=== PATIENT | female | born 1985 | race African-American/Black ===

== ENCOUNTER 2017-02-12 05:08 | Emergency (ER) | payer SELFPAY ==
[2017-02-12 05:09] VITALS: BP 135/87; PULSE 96; RESP 15; TEMP 99.2; O2SAT 98
[2017-02-12] MEDS ORDERED: MACR100C2 PO (05:50)
[2017-02-12] MEDS ORDERED: TRICTAB PO (06:24)
--- NOTE | 2017-02-12 06:26 | PD ---
HPI Chief Complaint: GI Complaint Time Seen by Provider: 05:47 Travel History International Travel<30 days: No Contact w/Intl Traveler<30days: No Traveled to known affect area: No History of Present Illness HPI 31-year-old female arrives with occasional nausea, vague discomfort with urination as well as urinary frequency. She reports that about 7 weeks ago she was started on Macrobid for UTI however she stopped taking it early in the course due to nausea. Last menstruation was about 7 weeks ago. She's had no vaginal bleeding or vaginal discharge. She discovered today here that she is with the point of care test. No fever or back pain. PFSH Past Medical History Medical History: Denies Significant Hx Diminished Hearing: No ?: Unknown Past Surgical History Surgical History: No Previous Surgery Social History Alcohol Use: No Tobacco Use: No Substance Use: No Allergies-Medications (Allergen,Severity, Reaction): Coded Allergies: No Known Allergies (Unverified , 02/12/17) Reported Meds & Prescriptions Reported Meds & Active Scripts Active ( Vit-Ferrous Fumarate) 1 Tab Tab 1 Tab PO DAILY Reported Macrobid (Nitrofurantoin Monoh/Nitrofur Macro) 100 Mg Cap 100 Mg PO BID Review of Systems Except as stated in HPI: all other systems reviewed are Neg Physical Exam Narrative GENERAL: 31-year-old female well-nourished well-developed no acute distress SKIN: Warm and dry. HEAD: Atraumatic. Normocephalic. EYES: Pupils equal and round. No scleral icterus. No injection or drainage. ENT: No nasal bleeding or discharge. Mucous membranes pink and moist. NECK: Trachea midline. No JVD. CARDIOVASCULAR: Regular rate and rhythm. RESPIRATORY: No accessory muscle use. Clear to auscultation. Breath sounds equal bilaterally. GASTROINTESTINAL: Abdomen soft, non-tender, nondistended. Hepatic and splenic margins not palpable. No flank tenderness. MUSCULOSKELETAL: Extremities without clubbing, cyanosis, or edema. No obvious deformities. NEUROLOGICAL: Awake and alert. No obvious cranial nerve deficits. Motor grossly within normal limits. Five out of 5 muscle strength in the arms and legs. Normal speech. PSYCHIATRIC: Appropriate mood and affect; insight and judgment normal. Data Data Last Documented VS Vital Signs Date Time Temp Pulse Resp B/P Pulse Ox O2 Delivery O2 Flow Rate FiO2 02/12/17 05:09 99.2 96 15 135/87 98 Room Air Vital signs reviewed Orders Urinalysis - C+S If Indicated (02/12/17 05:53) Ed Urine Pregnancytest Poc (02/12/17 05:53) Urine Culture (02/12/17 06:05) Labs Laboratory Tests Test 02/12/17 06:05 Urine Color YELLOW Urine Turbidity HAZY Urine pH 6.0 Urine Specific Bradley 1.035 Urine Protein 30 mg/dL Urine Glucose (UA) NEG mg/dL Urine Ketones NEG mg/dL Urine Occult Blood NEG Urine Nitrite NEG Urine Bilirubin NEG Urine Urobilinogen LESS THAN 2.0 MG/DL Urine Leukocyte Esterase NEG Urine RBC 4 /hpf Urine WBC 12 /hpf Urine Squamous Epithelial 10 /hpf Cells Urine Bacteria MOD /hpf Urine Hyaline Casts 7 /lpf Urine Mucus MANY /lpf Microscopic Urinalysis Comment CULTURE INDICATED MDM Medical Decision Making Medical Screen Exam Complete: Yes Emergency Medical Condition: Yes Medical Record Reviewed: Yes Differential Diagnosis UTI, intrauterine , gynecologic-related cramping Narrative Course Point of care is positive UA: UTI Keflex script. vitamins. OB f/u. Diagnosis Primary Impression: Qualified Code: Z3A.01 - Less than 8 weeks gestation of Additional Impression: Cystitis Referrals: Aranza Mayberry MD 2 days Patient Instructions: Abdominal Pain in (ED), General Instructions Additional Instructions: Call Dr. Mayberry of obstetrics to establish ongoing follow-up. Please fill Keflex prescription and start taking it this morning. Med/Other Pt SpecificInfo: Prescription(s) given Scripts Cephalexin (Keflex)500 Mg Hgi237 Mg PO Q12H 5 Days Ref 0 Prov:Ede Cheng MD 02/12/17 Vit-Ferrous Fumarate ()1 Tab Tab1 Tab PO DAILY #30 TAB Ref 3 Prov:Ede Cheng MD 02/12/17 Disposition: 01 DISCHARGE HOME Condition: Stable Ede Cheng MD Feb 12, 2017 06:26
[2017-02-12 06:47] LABS: BACTERIA, URINE MOD /hpf; BLOOD, URINE NEG (NEG); COMMENT (UR) CULTURE INDICATED; CULTURE IF INDICATED CULTURE INDICATED; GLUCOSE,URINE NEG (NEG); HYALINE CAST, URINE 7 /lpf (RARE); KETONE, URINE NEG (NEG); MUCUS URINE MANY /lpf (OCC); NITRITE,URINE NEG (NEG); SQUAMOUS EPITHELIAL CELL URINE 10 /hpf (0-5); URINE COLOR YELLOW (YELLW/STRAW)
[2017-02-12] MEDS ORDERED: CEPH-460 PO (06:59)
== END 2017-02-12 07:12 | disposition home or self-care (01) ==
LOC: NEPE 05:08
DX: O23.11 Infections of bladder in pregnancy, first trimester (principal); Z3A.01 Less than 8 weeks gestation of pregnancy
CPT/HCPCS: 81001; 84703; 87086; 99283

== ENCOUNTER 2017-09-07 14:43 | Inpatient (IN) | payer MEDICAID, OTHER ==
[~2017-09-07] VITALS: Ht 172.7 cm; Wt 92.0 kg
[2017-09-07] VITALS (30 sets, daily range): BP systolic 141–169; BP diastolic 85–109; PULSE 16–106; RESP 16–20; TEMP 97.4–98.4; O2SAT 100
[~2017-09-07 14:43] MED LIST: CEPH-460 PO; MACR100C2 PO; TRICTAB PO
[2017-09-07] MEDS: LACTATED RINGER'S 1000 ML INJ 1,000 ML IV SCH ×2 (15:59)
[2017-09-07] MEDS ORDERED: LACTATED RINGER'S 1000 ML INJ 1,000 ML IV PRN (15:59)
--- NOTE | 2017-09-07 15:59 | PD ---
HPI Chief Complaint High blood pressure Date Seen: Sep 07, 2017 Time Seen: 15:55 Travel History International Travel<30 Days: No Contact w/Intl Traveler<30Days: No Known Affected Area: No History of Present Illness HPI 32-year-old who is at 37 weeks 4 days went into [facility] for her midwifery today with a blood pressure that was 178/126. Patient complains of a headache since this morning with some swelling in the hands and feet for several weeks. Patient's had good movement and no other complaints at this time Weeks Gestation: 37 Para: 0 : 1 History Past Medical History Medical History: Denies Significant Hx Past Surgical History Surgical History: No Previous Surgery Family History Family History: Negative Social History Alcohol Use: No Tobacco Use: No Substance Abuse: No Allergies-Medications (Allergen,Severity, Reaction): Coded Allergies: No Known Allergies (Unverified , 02/12/17) Home Meds Active Scripts Cephalexin (Keflex) 500 Mg Cap, 500 MG PO Q12H for Infection for 5 Days, CAP 0 Refills Prov:Ede Cheng MD 02/12/17 Vit-Ferrous Fumarate () 1 Tab Tab, 1 TAB PO DAILY for Nutritional Supplement, #30 TAB 3 Refills Prov:Ede Cheng MD 02/12/17 Reported Medications Nitrofurantoin Monohydrate Macrocrystals (Macrobid) 100 Mg Cap, 100 MG PO BID for Infection, CAP 0 Refills 02/12/17 Physical Exam Narrative GENERAL: Well-nourished, well-developed patient. SKIN: Warm and dry. HEAD: Normocephalic and atraumatic. EYES: No scleral icterus. No injection or drainage. ENT: No nasal drainage noted. Mucous membranes pink. Airway patent. NECK: Supple, trachea midline. No JVD. CARDIOVASCULAR: Regular rate and rhythm without murmurs, gallops, or rubs. RESPIRATORY: Breath sounds equal bilaterally. No accessory muscle use. ABDOMEN/GI: Abdomen soft, non-tender, bowel sounds present, no rebound, no guarding Gravid to [-38] weeks size Fundal Height: [-] GENITOURINARY: External Genitalia: intact and normal in appearance BUS glands: [Normal-] Cervix: [-] 1 Dilatation: [-] Effacement: [-] 70 Station: [-] -2 Presentation: [-] Vertex Membranes: [intact or ruptured] intact Uterine Contractions: [-] Absent FHT's: Category: [-] 1 Baseline: [-] 140 Reactive: [-] Moderate Variability: [-] Moderate Decels: [-] Absent EXTREMITIES: No cyanosis or edema. BACK: Nontender without obvious deformity. No CVA tenderness. NEUROLOGICAL: Awake and alert. Motor and sensory grossly within normal limits. Five out of 5 muscle strength in all muscle groups. Normal speech. Data Data Vital Signs Reviewed: Yes (blood pressures are elevated 162/102, 158/98) Group B Strep: Negative [facility] Medical Record Reviewed: Yes Plan 32-year-old at 37 weeks 4 days with gestational hypertension. Patient will need to be placed on magnesium sulfate with antihypertensive therapy with labetalol IV as necessary. Plan to induce using Cytotec for cervical ripening followed by Pitocin. Group B strep negative Diagnosis Diagnosis: Primary Impression: 37 weeks gestation of Additional Impression: Gestational hypertension Savi Olvera MD Sep 07, 2017 15:59
[2017-09-07] MEDS ORDERED: CITRIC ACID-SODIUM CITRATE LIQ 30 ML UDC PO SCH (16:00)
[2017-09-07] MEDS ORDERED: MISOPROSTOL 100 MCG TAB VAGINAL PRN (16:00)
[2017-09-07] MEDS ORDERED: OXYTOCIN 30 UNITS-500ML PREMIX 500 ML IV ONE (16:00)
[2017-09-07] MEDS ORDERED: ONDANSETRON HCL 4 MG/2 ML VIAL IV PUSH PRN (16:00)
[2017-09-07] MEDS ORDERED: SODIUM CHLORID 0.9% 500 ML INJ 500 ML IV PRN (16:00)
[2017-09-07] MEDS ORDERED: MINERAL OIL 10 ML VIAL TOPICAL PRN (16:00)
[2017-09-07] MEDS ORDERED: MAGNESIUM SULFATE 4 GM PREMIX 100 ML IV ONE (16:00)
[2017-09-07] MEDS ORDERED: LIDOCAINE HCL 1% 50 ML VIAL INFIL PRN (16:00)
[2017-09-07] MEDS ORDERED: CALCIUM GLUCONATE 10% 1 GM/10 ML VIAL IV PUSH PRN (16:00)
[2017-09-07] MEDS ORDERED: LIDOCAINE HCL 1% 50 ML VIAL I-DERMAL PRN (16:00)
[2017-09-07] MEDS ORDERED: SODIUM CHLORIDE 0.9% FLUSH 10 ML FLUSH IV FLUSH PRN ×2 (16:00)
[2017-09-07] MEDS ORDERED: LABETALOL HCL 100 MG/20 ML VIAL IV PUSH PRN ×2 (16:00→16:15)
[2017-09-07] MEDS ORDERED: SODIUM CHLOR 0.9% 1000 ML INJ 1,000 ML IV PRN (16:19)
[2017-09-07 17:04] LABS: AUTOMATED NEUTROPHIL # 6.1 TH/MM3 (1.8-7.7); BASOPHIL % 0.3 % (0.0-2.0); EOSINOPHIL # 0.1 TH/MM3 (0-0.4); EOSINOPHIL % 0.9 % (0.0-4.0); HEMATOCRIT 38.1 % (35.0-46.0); HEMOGLOBIN 12.8 GM/DL (11.6-15.3); LYMPHOCYTE # 2.4 TH/MM3 (1.0-4.8); MEAN CELL VOLUME 88.8 FL (80.0-100.0); MEAN CORPUSCULAR HEMOGLOBIN 29.8 PG (27.0-34.0); MEAN CORPUSCULAR HGB CONC 33.5 % (32.0-36.0); MEAN PLATELET VOLUME 9.3 FL (7.0-11.0); MONO % 9.2 % (0.0-8.0); MONOCYTE # 0.9 TH/MM3 (0-0.9); NEUT % 64.6 % (16.0-70.0); PLATELET COUNT 211 TH/MM3 (150-450); RED BLOOD COUNT 4.29 MIL/MM3 (4.00-5.30); RED CELL DISTRIBUTION WIDTH 14.3 % (11.6-17.2); WHITE BLOOD COUNT 9.5 TH/MM3 (4.0-11.0)
[2017-09-07 17:19] LABS: BACTERIA, URINE MOD /hpf; BILIRUBIN, URINE NEG (NEG); BLOOD, URINE NEG (NEG); GLUCOSE,URINE NEG (NEG); KETONE, URINE NEG (NEG); NITRITE,URINE NEG (NEG); SQUAMOUS EPITHELIAL CELL URINE 6 /hpf (0-5); URINE COLOR LIGHT-YELLOW (YELLW/STRAW); URINE LEUKOCYTE ESTERASE SMALL (NEG)
[2017-09-07 17:27] LABS: ALBUMIN 2.8 GM/DL (3.4-5.0); ALT (GPT) 17 U/L (10-53); AST (GOT) 17 U/L (15-37); BICARBONATE 23.6 MEQ/L (21.0-32.0); BLOOD UREA NITROGEN 5 MG/DL (7-18); CALCIUM 8.9 MG/DL (8.5-10.1); CHLORIDE 105 MEQ/L (98-107); CREATININE 0.64 MG/DL (0.50-1.00); GLOMERULAR FILTRATION RATE 131 ML/MIN (>89); GLUCOSE,RANDOM 75 MG/DL (74-106); SODIUM (NA) 138 MEQ/L (136-145)
[2017-09-07 17:30] LABS: ALKALINE PHOSPHATASE 166 U/L (45-117); TOTAL BILIRUBIN ADULT 0.2 MG/DL (0.2-1.0); TOTAL PROTEIN 7.4 GM/DL (6.4-8.2)
[2017-09-07] MEDS: MAGNESIUM SULFATE 40 GM PREMIX 1,000 ML IV SCH (19:30)
[2017-09-07] MEDS: SODIUM CHLORIDE 0.9% FLUSH 10 ML FLUSH IV FLUSH SCH ×2 (21:00)
--- NOTE | 2017-09-07 21:24 | PD.LABORPN ---
Subjective Subjective Laying in bed comfortably, no complaints at this time. Objective Objective Pelvic Exam: Cervix: - Dilatation: 1 Effacement: 70 Station: -2 Presentation: midposition Membranes: intact Uterine Contractions: rare FHT's: Category: 1 Baseline: 125 Reactive: yes Variability: moderate Decels: none Weeks Gestation: 37 Assessment/Plan Assessment and Plan 32 year old at 34 and 4 admitted with hypertension, on magnesium and being induced. Category 1 FHT GBS negative -Cervical ripening with Cytotec -Pitocin to follow -Continuous FHT -Expectant management -Continue activity as tolerated Boni Menendez MD R1 Sep 07, 2017 21:24
[2017-09-08] VITALS (125 sets, daily range): BP systolic 123–164; BP diastolic 18–127; PULSE 83–185; RESP 16–20; TEMP 97.6–98.4; O2SAT 98–100
[2017-09-08] MEDS ORDERED: MISOPROSTOL 25 MCG TAB VAGINAL PRN (01:45)
[2017-09-08] MEDS: LACTATED RINGER'S 1000 ML INJ 1,000 ML IV SCH ×3 (02:45→18:39)
[2017-09-08] MEDS ORDERED: LIDOCAINE 2% JELLY 5 ML TUBE TOPICAL ONE (03:00)
[2017-09-08] MEDS: SODIUM CHLORIDE 0.9% FLUSH 10 ML FLUSH IV FLUSH SCH ×3 (08:18→21:00)
--- NOTE | 2017-09-08 08:33 | PD.LABORPN ---
Subjective Subjective Patient continues to have contractions that have recently become more painful. Last cytotec at 0200 this am. Three doses of labetalol throughout the night due to elevated blood pressures. 37-38 week presently on magnesium sulfate due to severe preeclampsia admitted for induction. Objective Vital Signs Vital Signs Date Time Temp Pulse Resp B/P (MAP) Pulse Ox O2 Delivery O2 Flow Rate FiO2 09/08/17 08:11 16 09/08/17 08:01 96 143/99 (114) 09/08/17 08:00 94 09/08/17 07:45 16 09/08/17 07:15 16 09/08/17 07:05 93 100 09/08/17 07:00 94 09/08/17 07:00 91 146/100 (115) 100 09/08/17 06:07 16 09/08/17 06:05 87 09/08/17 06:00 88 09/08/17 06:00 94 16 139/80 (99) 09/08/17 05:55 95 09/08/17 05:50 93 09/08/17 05:50 92 142/88 (106) 09/08/17 05:45 98 09/08/17 05:45 18 09/08/17 05:41 94 150/94 (112) 09/08/17 05:40 95 09/08/17 05:35 92 09/08/17 05:30 92 09/08/17 05:15 18 09/08/17 05:10 99 09/08/17 05:05 96 09/08/17 05:00 93 09/08/17 05:00 96 164/98 (120) 09/08/17 04:10 90 09/08/17 04:05 89 09/08/17 04:00 92 150/94 (112) 09/08/17 04:00 91 09/08/17 03:55 96 100 09/08/17 03:50 105 100 09/08/17 03:45 113 100 09/08/17 03:41 16 09/08/17 03:40 87 150/102 (118) 09/08/17 03:40 98 09/08/17 03:40 93 09/08/17 03:35 98 09/08/17 03:35 86 09/08/17 03:30 97 18 09/08/17 03:30 100 09/08/17 03:25 100 09/08/17 03:25 91 09/08/17 03:24 91 159/100 (119) 09/08/17 03:20 100 09/08/17 03:20 93 09/08/17 03:15 100 09/08/17 03:15 94 18 09/08/17 03:10 98 09/08/17 03:10 100 09/08/17 03:05 100 09/08/17 03:05 95 09/08/17 03:00 98 09/08/17 03:00 93 164/100 (121) 09/08/17 03:00 100 09/08/17 02:55 99 100 09/08/17 02:50 90 100 09/08/17 02:45 91 100 09/08/17 02:40 89 100 09/08/17 02:35 88 100 09/08/17 02:30 87 100 09/08/17 02:25 88 100 09/08/17 02:20 94 100 09/08/17 02:15 95 100 09/08/17 02:15 98.4 16 09/08/17 02:10 102 09/08/17 02:05 93 09/08/17 02:00 94 09/08/17 02:00 94 162/100 (120) 09/08/17 01:58 98.4 09/08/17 01:00 90 159/100 (119) 100 09/08/17 01:00 92 Objective Pelvic Exam: Cervix: [-]anterior Dilatation: [-] 1 Effacement: [-]90 Station: [-] -2 Presentation: [-]vtx Membranes: [intact or ruptured] AROM clear Uterine Contractions: [-]irregular/external FHT's: Category: [-]1 Baseline: [-] 140 Reactive: [-] mod Variability: [-] mod Decels: [-] occasional variable to 90 x 20 sec Weeks Gestation: 37 Artificial ROM date: Sep 08, 2017 Artifical ROM time: 08:31 Assessment/Plan Assessment and Plan Continue magnesium sulfate with labetalol prn elevated blood pressure Start pitocin augmentation Savi Olvera MD Sep 08, 2017 08:33
[2017-09-08] MEDS ORDERED: OXYTOCIN 30 UNITS-500ML PREMIX 500 ML IV PRN (08:45)
[2017-09-08] MEDS ORDERED: hydrALAZINE HCL 20 MG/ML VIAL IV PUSH ONE (10:30)
--- NOTE | 2017-09-08 11:09 | PD.LABORPN ---
Subjective Subjective Patient laying in bed tolerating contractions. IUPC placed. Objective Vital Signs Vital Signs Date Time Temp Pulse Resp B/P (MAP) Pulse Ox O2 Delivery O2 Flow Rate FiO2 09/08/17 10:52 97.7 09/08/17 10:40 102 09/08/17 10:35 102 09/08/17 10:30 100 161/106 (124) 09/08/17 10:30 100 09/08/17 10:05 103 09/08/17 10:00 100 09/08/17 10:00 100 160/104 (122) 09/08/17 09:50 98 09/08/17 09:49 101 162/101 (121) 09/08/17 09:45 97 09/08/17 09:10 97 09/08/17 09:05 98 09/08/17 09:00 100 158/106 (123) 09/08/17 09:00 97 09/08/17 08:11 16 09/08/17 08:01 96 143/99 (114) 09/08/17 08:00 94 09/08/17 07:45 16 09/08/17 07:15 16 09/08/17 07:05 93 100 09/08/17 07:00 94 09/08/17 07:00 91 146/100 (115) 100 09/08/17 06:07 16 09/08/17 06:05 87 09/08/17 06:00 88 09/08/17 06:00 94 16 139/80 (99) 09/08/17 05:55 95 09/08/17 05:50 93 09/08/17 05:50 92 142/88 (106) 09/08/17 05:45 98 09/08/17 05:45 18 09/08/17 05:41 94 150/94 (112) 09/08/17 05:40 95 09/08/17 05:35 92 09/08/17 05:30 92 09/08/17 05:15 18 09/08/17 05:10 99 09/08/17 05:05 96 09/08/17 05:00 93 09/08/17 05:00 96 164/98 (120) 09/08/17 04:10 90 09/08/17 04:05 89 09/08/17 04:00 92 150/94 (112) 09/08/17 04:00 91 09/08/17 03:55 96 100 09/08/17 03:50 105 100 09/08/17 03:45 113 100 09/08/17 03:41 16 09/08/17 03:40 87 150/102 (118) 09/08/17 03:40 98 09/08/17 03:40 93 09/08/17 03:35 98 09/08/17 03:35 86 09/08/17 03:30 97 18 09/08/17 03:30 100 09/08/17 03:25 100 09/08/17 03:25 91 09/08/17 03:24 91 159/100 (119) 09/08/17 03:20 100 09/08/17 03:20 93 09/08/17 03:15 100 09/08/17 03:15 94 18 09/08/17 03:10 98 09/08/17 03:10 100 09/08/17 03:05 100 09/08/17 03:05 95 Objective Pelvic Exam: Cervix: midline Dilatation: 4 Effacement: 100 Station: 0 Presentation: vertex Membranes: ruptured Uterine Contractions: regularly FHT's: Category: 1 Baseline: 130s Reactive: yes Variability: moderate Decels: none Weeks Gestation: 37 Pt started active labor?: No Medical induction of labor?: Yes Artificial rupture of membrane: Yes Artificial ROM date: Sep 08, 2017 Artifical ROM time: 08:31 Assessment/Plan Assessment and Plan 32yo at 37/5 weeks gestation admitted for induction of labor due to pre- eclampsia. FHT shows category 1 tracing -Currently on IV hydralazine for BP -IUPC placed -Continue to monitor for any distress Tanja Lauren MD R1 Sep 08, 2017 11:09
[2017-09-08] MEDS ORDERED: fentaNYL 2MCG-BUPIV 0.125% INJ 100 ML ONE ×2 (11:20→11:29)
[2017-09-08] MEDS ORDERED: ePHEDrine/NS 25 MG/5 ML SYRINGE ONE ×2 (11:20→11:29)
[2017-09-08] MEDS ORDERED: fentaNYL 2MCG-BUPIV 0.125% 100 ML EPIDURAL SCH (13:00)
[2017-09-08] MEDS ORDERED: NO SYSTEM NARCOTICS PRN (13:00)
[2017-09-08] MEDS ORDERED: DO NOT ADMINISTER ANTICOAGULANTS PRN (13:00)
[2017-09-08] MEDS ORDERED: ePHEDrine/NS 25 MG/5 ML SYRINGE IV PUSH PRN (13:00)
[2017-09-08] MEDS ORDERED: ONDANSETRON ODT 4 MG TAB PO PRN (13:45)
[2017-09-08] MEDS ORDERED: BENZOCAINE 20% TOPICAL SPRAY 60 ML CAN TOPICAL PRN (13:45)
[2017-09-08] MEDS ORDERED: OXYTOCIN 30 UNITS-500ML PREMIX 500 ML IV SCH (13:45)
[2017-09-08] MEDS ORDERED: oxyCODONE/ACETAMINOPHEN 5 MG/325 MG TAB PO PRN (13:45)
[2017-09-08] MEDS ORDERED: WITCH HAZEL 50%/GLYCERIN 12.5% 40 PAD JAR TOPICAL PRN (13:45)
[2017-09-08] MEDS ORDERED: ALUMINUM/MAGNESIUM/SIMETH 30 ML CUP PO PRN (13:45)
[2017-09-08] MEDS ORDERED: SODIUM CHLORIDE 0.9% FLUSH 10 ML FLUSH IV FLUSH PRN (13:45)
[2017-09-08] MEDS ORDERED: ACETAMINOPHEN 325 MG TAB PO PRN (13:45)
--- NOTE | 2017-09-08 13:46 | PD.OB.DELI ---
Weeks gestation: 37 Pt started active labor?: No Medical induction of labor?: Yes Artificial rupture of membrane: Yes Artificial ROM date: Sep 08, 2017 Artifical ROM time: 08:31 Anesthesia: Epidural Episiotomy: None Vaginal Delivery: Normal Presentation: Occiput anterior Nuchal Cord: x1 (tight) Delayed cord clamping (45 sec): No Infant: Female Delivery date: Sep 08, 2017 Delivery time: 13:23 One Minute : 8 Five Minute : 9 Weight: 2885 Placenta: Spontaneous delivery, Intact, 3 vessel cord Laceration: Vaginal laceration, 2 deg Repair: Chromic running Estimated blood loss: 250 Tanja Lauren MD R1 Sep 08, 2017 13:46
[2017-09-08] MEDS: MAGNESIUM SULFATE 40 GM PREMIX 1,000 ML IV SCH (14:14)
[2017-09-08] MEDS ORDERED: DIPHTH/TETANUS/ACEL PERTUSSIS (BOOSTER) 0.5 ML VIAL/PFS IM ONE (16:00)
[2017-09-08] MEDS ORDERED: MEASLES, MUMPS, RUBELLA VACCINE 0.5 ML VIAL SQ ONE (16:00)
[2017-09-08] MEDS ORDERED: hydrALAZINE HCL 20 MG/ML VIAL IV PUSH PRN (20:00)
[2017-09-08] MEDS ORDERED: ZOLPIDEM TARTRATE 5 MG TAB PO PRN (21:00)
[2017-09-09] VITALS (36 sets, daily range): BP systolic 120–172; BP diastolic 54–111; PULSE 92–123; RESP 17–20; TEMP 97.6–98.9; O2SAT 100
[2017-09-09] MEDS ORDERED: diphenhydrAMINE HCL 50 MG CAP PO ONE (00:30)
[2017-09-09] MEDS: MAGNESIUM SULFATE 40 GM PREMIX 1,000 ML IV SCH (08:58)
[2017-09-09] MEDS: IBUPROFEN 800 MG TAB PO PRN ×2 (08:59→19:10)
[2017-09-09] MEDS: LACTATED RINGER'S 1000 ML INJ 1,000 ML IV SCH ×2 (08:59→21:19)
[2017-09-09] MEDS: SODIUM CHLORIDE 0.9% FLUSH 10 ML FLUSH IV FLUSH SCH ×2 (09:00→22:17)
--- NOTE | 2017-09-09 09:09 | HHI.OB ---
Subjective Post Day: 1 Remarks day # 1. AFVSS overnight. Pain minimal. Decreased lochia. Denies dysuria. No breast tenderness. She is feeding the baby via breast. Appetite good. No nausea or vomiting. + flatus. no bowel movement. Ambulating well. Denies calf pain, shortness of breath, or cough. Otherwise, she is doing well this morning and has no other complaints. Objective Vitals/I&O Vital Signs Date Time Temp Pulse Resp B/P (MAP) Pulse Ox O2 Delivery O2 Flow Rate FiO2 09/09/17 09:03 92 156/99 (118) 09/09/17 09:00 98.0 18 09/09/17 09:00 100 09/09/17 08:00 93 137/94 (108) 09/09/17 07:46 18 09/09/17 07:00 113 140/103 (115) 09/09/17 06:00 99 138/90 (106) 09/09/17 05:10 97.9 18 09/09/17 05:00 109 140/91 (107) 09/09/17 04:00 101 134/78 (96) 09/09/17 03:00 119 129/71 (90) 09/09/17 02:00 120 134/77 (96) 09/09/17 01:15 20 09/09/17 01:00 106 144/96 (112) 09/09/17 00:54 98.4 09/09/17 00:35 18 09/09/17 00:00 103 147/89 (108) 09/08/17 23:00 111 148/92 (110) 09/08/17 22:56 115 143/86 (105) 09/08/17 22:00 123 123/67 (85) 09/08/17 21:17 20 09/08/17 21:00 119 18 159/88 (111) 09/08/17 20:41 123 148/93 (111) 09/08/17 20:00 105 149/105 (120) 09/08/17 19:23 98.4 09/08/17 19:23 18 09/08/17 19:18 110 09/08/17 19:18 156/106 (123) 09/08/17 19:16 109 09/08/17 19:00 105 09/08/17 18:12 105 154/99 (117) 09/08/17 18:00 106 09/08/17 17:01 18 09/08/17 17:00 115 136/89 (105) 09/08/17 17:00 97.8 09/08/17 16:30 17 09/08/17 16:00 115 146/95 (112) 09/08/17 15:45 18 09/08/17 15:30 116 148/75 (99) 09/08/17 15:15 107 151/95 (113) 09/08/17 15:13 17 09/08/17 15:05 97.7 09/08/17 15:00 99 148/89 (108) 09/08/17 15:00 17 09/08/17 14:45 103 09/08/17 14:45 157/95 (115) 09/08/17 14:45 17 09/08/17 14:30 106 18 150/94 (112) 09/08/17 14:16 185 133/18 (56) 09/08/17 14:15 17 09/08/17 14:00 105 152/93 (112) 09/08/17 13:59 18 09/08/17 13:45 103 137/101 (113) 09/08/17 13:45 18 09/08/17 13:45 97.6 09/08/17 13:42 107 137/91 (106) 09/08/17 13:15 95 09/08/17 13:15 101 161/127 (138) 09/08/17 13:10 103 09/08/17 13:10 101 153/99 (117) 09/08/17 13:05 97 151/98 (115) 09/08/17 13:05 95 09/08/17 13:00 93 09/08/17 13:00 93 154/93 (113) 09/08/17 12:55 93 148/93 (111) 09/08/17 12:55 90 09/08/17 12:50 91 157/93 (114) 09/08/17 12:50 90 09/08/17 12:45 90 09/08/17 12:45 91 147/91 (109) 09/08/17 12:40 92 152/95 (114) 09/08/17 12:40 89 09/08/17 12:35 94 151/93 (112) 09/08/17 12:35 89 09/08/17 12:30 91 09/08/17 12:30 89 149/89 (109) 09/08/17 12:25 97 09/08/17 12:25 94 152/95 (114) 09/08/17 12:20 89 09/08/17 12:20 95 146/92 (110) 09/08/17 12:15 94 141/88 (105) 09/08/17 12:15 93 09/08/17 12:10 94 09/08/17 12:10 95 145/90 (108) 09/08/17 12:05 97 153/90 (111) 09/08/17 12:05 97 09/08/17 12:03 20 09/08/17 12:00 98 150/89 (109) 09/08/17 12:00 100 09/08/17 11:58 20 09/08/17 11:57 101 141/84 (103) 09/08/17 11:55 98 09/08/17 11:52 18 09/08/17 11:50 96 09/08/17 11:50 95 140/83 (102) 09/08/17 11:45 93 09/08/17 11:45 94 140/87 (104) 09/08/17 11:45 20 09/08/17 11:40 102 152/86 (108) 09/08/17 11:40 99 09/08/17 11:35 102 09/08/17 11:35 104 157/83 (107) 09/08/17 11:30 108 09/08/17 11:30 20 09/08/17 11:30 104 149/94 (112) 09/08/17 11:00 105 161/104 (123) 09/08/17 11:00 105 09/08/17 10:52 97.7 09/08/17 10:40 102 09/08/17 10:35 102 09/08/17 10:30 100 161/106 (124) 09/08/17 10:30 100 09/08/17 10:05 103 09/08/17 10:00 100 09/08/17 10:00 100 160/104 (122) 09/08/17 09:50 98 09/08/17 09:49 101 162/101 (121) 09/08/17 09:45 97 09/08/17 09:10 97 Objective Remarks GENERAL: Well-nourished, well-developed patient. CARDIOVASCULAR: Regular rate and rhythm without murmurs, gallops, or rubs. RESPIRATORY: Breath sounds equal bilaterally. No accessory muscle use. ABDOMEN/GI: Abdomen soft, non-tender. Fundus: Firm, non-tender at umbilicus. GENITOURINARY: Light to moderate bleeding. EXTREMITIES: No cyanosis or edema, non-tender, without signs of DVT. Medications and IVs Current Medications Medications (Trade) Dose Ordered Sig/Haja Route Start Time Stop Time Status Last Admin Sodium Chloride 500 ml @ 1,000 mls/hr ONCE PRN IV 09/07/17 16:00 Sodium Chloride 1,000 ml @ 100 mls/hr Q10H PRN IV 09/07/17 16:19 (Xylocaine 1% Inj (50 ml)) 0.1 ml UNSCH X1 PRN I-DERMAL 09/07/17 16:00 09/10/17 15:59 (Bicitra Liq) 30 ml ENTOMOLOGY TEACHER PO 09/07/17 16:00 09/11/17 15:59 (Xylocaine 1% Inj (50 ml)) 10 ml UNSCH X1 PRN INFIL 09/07/17 16:00 09/09/17 15:59 (Muri-Lube Oil) 10 ml UNSCH PRN TOPICAL 09/07/17 16:00 Lactated Ringer's 1,000 ml @ 75 mls/hr [id number] IV 09/07/17 15:59 09/09/17 08:59 Magnesium Sulfate 1,000 ml @ 50 mls/hr Q20H IV 09/07/17 15:59 09/09/17 08:58 (Trandate Inj) 40 mg NOW PRN IV PUSH 09/07/17 16:15 (Calcium Gluconate Inj) 1 gm UNSCH PRN IV PUSH 09/07/17 16:00 Miscellaneous Information No systemic narcotics to be given except... UNSCH PRN .XX 09/08/17 13:00 09/09/17 12:59 Miscellaneous Information DO NOT ADMINISTER ANY ANTICOAGUL... UNSCH PRN .XX 09/08/17 13:00 09/09/17 12:59 (ePHEDrine/NS 25 MG/5 ML SYR) 10 mg UNSCH PRN IV PUSH 09/08/17 13:00 09/09/17 12:59 (NS Flush) 2 ml BID IV FLUSH 09/08/17 21:00 (NS Flush) 2 ml UNSCH PRN IV FLUSH 09/08/17 13:45 (Tylenol) 650 mg Q4H PRN PO 09/08/17 13:45 (Motrin) 800 mg Q8H PRN PO 09/08/17 13:45 09/09/17 08:59 (Percocet 5-325 Mg) 1 tab Q4H PRN PO 09/08/17 13:45 (Percocet 5-325 Mg) 2 tab Q4H PRN PO 09/08/17 13:45 (Americaine 20% Top Spr) 1 spray Q4H PRN TOPICAL 09/08/17 13:45 (Tucks Pads) 1 applic QID PRN TOPICAL 09/08/17 13:45 (Lauren-Colace) 2 tab Q12H PRN PO 09/08/17 13:45 (Ambien) 5 mg HS PRN PO 09/08/17 21:00 (Mag-Al Plus Susp Liq) 15 ml Q8H PRN PO 09/08/17 13:45 (Zofran Odt) 4 mg Q6H PRN PO 09/08/17 13:45 Assessment/Plan Assessment and Plan 32 y/o who is PPD# 1 s/p . -Continue routine care. -Percocet and Motrin PRN pain. -Encouraged OOB. Advised pelvic rest for 6 wks. -Will need a f/u appt. within 6 wks. -Re: ctrl, she would like OCPs. -D/c in 1-2 more days. wdw OB attending Tanja Lauren MD R1 Sep 09, 2017 09:09
[2017-09-09] MEDS ORDERED: hydrALAZINE HCL 20 MG/ML VIAL IV PUSH PRN (10:30)
[2017-09-09] MEDS: DOCUSATE SODIUM 50 MG/SENNA 8.6 MG TAB PO PRN (20:10)
[2017-09-09] MEDS: NIFEdipine 30 MG SUSTAINED RELEASE TAB PO SCH (20:10)
[2017-09-09] MEDS ORDERED: hydrALAZINE HCL 20 MG/ML VIAL IV PUSH ONE (22:00)
[2017-09-09] MEDS ORDERED: NIFEdipine 10 MG CAP PO ONE (23:30)
[2017-09-10] VITALS (29 sets, daily range): BP systolic 131–164; BP diastolic 66–106; PULSE 94–134; RESP 16–18; TEMP 98.1–98.8; O2SAT 98
[2017-09-10] MEDS ORDERED: diphenhydrAMINE HCL 50 MG CAP PO PRN (00:30)
[2017-09-10] MEDS: MAGNESIUM SULFATE 40 GM PREMIX 1,000 ML IV SCH (03:59)
--- NOTE | 2017-09-10 09:04 | HHI.OB ---
Subjective Post Day: 2 Remarks day #2. AFVSS overnight. Pain minimal. Decreased lochia. Denies dysuria. No breast tenderness. She is feeding the baby via breast/bottle. Appetite good. No nausea or vomiting. Endorses flatus. No bowel movement. Ambulating well. Denies calf pain, shortness of breath, or cough. Otherwise, she is doing well this morning and has no other complaints. Objective Vitals/I&O Vital Signs Date Time Temp Pulse Resp B/P (MAP) Pulse Ox O2 Delivery O2 Flow Rate FiO2 09/10/17 07:00 139/94 (109) 09/10/17 07:00 104 09/10/17 06:21 16 09/10/17 06:00 142/95 (111) 09/10/17 06:00 101 16 09/10/17 05:00 110 09/10/17 05:00 133/86 (102) 09/10/17 04:12 16 09/10/17 04:00 110 133/76 (95) 09/10/17 03:53 16 09/10/17 03:00 111 09/10/17 03:00 131/79 (96) 09/10/17 02:00 122 131/66 (87) 09/10/17 01:00 118 140/87 (104) 09/10/17 00:41 133 145/79 (101) 09/10/17 00:38 98.1 09/10/17 00:28 125 151/83 (105) 09/10/17 00:10 18 09/10/17 00:09 134 147/89 (108) 09/09/17 23:00 101 157/101 (119) 09/09/17 21:15 172/109 (130) 09/09/17 21:00 172/111 (131) 09/09/17 20:10 17 09/09/17 19:40 113 17 152/103 (119) 100 09/09/17 19:40 98.2 09/09/17 19:00 17 09/09/17 19:00 97.6 09/09/17 18:00 117 146/89 (108) 09/09/17 17:00 107 143/96 (112) 09/09/17 16:00 113 137/88 (104) 09/09/17 15:06 104 141/91 (108) 09/09/17 15:00 106 142/91 (108) 09/09/17 14:00 117 142/90 (107) 09/09/17 13:19 98.9 18 100 09/09/17 13:00 116 143/84 (103) 09/09/17 12:12 100 09/09/17 12:00 115 139/71 (93) 09/09/17 12:00 18 09/09/17 11:00 116 120/54 (76) 09/09/17 10:44 123 140/64 (89) 09/09/17 10:26 100 09/09/17 10:03 105 159/108 (125) 09/09/17 10:00 18 09/09/17 10:00 103 166/103 (124) 09/09/17 09:03 92 156/99 (118) Objective Remarks GENERAL: Well-nourished, well-developed patient. CARDIOVASCULAR: Regular rate and rhythm without murmurs, gallops, or rubs. RESPIRATORY: Breath sounds equal bilaterally. No accessory muscle use. ABDOMEN/GI: Abdomen soft, non-tender. Fundus: Firm, non-tender at umbilicus. GENITOURINARY: Light to moderate bleeding. EXTREMITIES: No cyanosis or edema, non-tender, without signs of DVT. Medications and IVs Current Medications Medications (Trade) Dose Ordered Sig/Haja Route Start Time Stop Time Status Last Admin Sodium Chloride 500 ml @ 1,000 mls/hr ONCE PRN IV 09/07/17 16:00 Sodium Chloride 1,000 ml @ 100 mls/hr Q10H PRN IV 09/07/17 16:19 (Xylocaine 1% Inj (50 ml)) 0.1 ml UNSCH X1 PRN I-DERMAL 09/07/17 16:00 09/10/17 15:59 (Bicitra Liq) 30 ml SALES ASSOCIATE KEY HOLDER PO 09/07/17 16:00 09/11/17 15:59 (Muri-Lube Oil) 10 ml UNSCH PRN TOPICAL 09/07/17 16:00 Lactated Ringer's 1,000 ml @ 75 mls/hr [id number] IV 09/07/17 15:59 09/09/17 08:59 Magnesium Sulfate 1,000 ml @ 50 mls/hr Q20H IV 09/07/17 15:59 09/09/17 08:58 (Trandate Inj) 40 mg NOW PRN IV PUSH 09/07/17 16:15 (Calcium Gluconate Inj) 1 gm UNSCH PRN IV PUSH 09/07/17 16:00 (NS Flush) 2 ml BID IV FLUSH 09/08/17 21:00 09/09/17 22:17 (NS Flush) 2 ml UNSCH PRN IV FLUSH 09/08/17 13:45 (Tylenol) 650 mg Q4H PRN PO 09/08/17 13:45 (Motrin) 800 mg Q8H PRN PO 09/08/17 13:45 09/09/17 19:10 (Percocet 5-325 Mg) 1 tab Q4H PRN PO 09/08/17 13:45 (Percocet 5-325 Mg) 2 tab Q4H PRN PO 09/08/17 13:45 (Americaine 20% Top Spr) 1 spray Q4H PRN TOPICAL 09/08/17 13:45 09/09/17 20:11 (Tucks Pads) 1 applic QID PRN TOPICAL 09/08/17 13:45 09/09/17 20:10 (Lauren-Colace) 2 tab Q12H PRN PO 09/08/17 13:45 09/09/17 20:10 (Ambien) 5 mg HS PRN PO 09/08/17 21:00 (Mag-Al Plus Susp Liq) 15 ml Q8H PRN PO 09/08/17 13:45 (Zofran Odt) 4 mg Q6H PRN PO 09/08/17 13:45 (Procardia Xl) 30 mg DAILY PO 09/09/17 20:00 09/09/17 20:10 Assessment/Plan Assessment and Plan 32 y/o who is PPD#2 s/p . -Continue routine care. -Percocet and Motrin PRN pain. -Encouraged OOB. Advised pelvic rest for 6 wks. -Will need a f/u appt. within 6 wks. -Re: ctrl, she would like OCPs. -D/c once BP stable HTN -Procardia 30mg daily -Given Hydralazine PRN Randell Gustafson MD Sep 10, 2017 09:04
[2017-09-10] MEDS: NIFEdipine 30 MG SUSTAINED RELEASE TAB PO SCH (09:27)
[2017-09-10 11:32] LABS: HEMATOCRIT 35.4 % (35.0-46.0); HEMOGLOBIN 12.4 GM/DL (11.6-15.3); MEAN CELL VOLUME 88.6 FL (80.0-100.0); MEAN CORPUSCULAR HEMOGLOBIN 30.9 PG (27.0-34.0); MEAN CORPUSCULAR HGB CONC 34.9 % (32.0-36.0); MEAN PLATELET VOLUME 8.6 FL (7.0-11.0); PLATELET COUNT 217 TH/MM3 (150-450); RED CELL DISTRIBUTION WIDTH 14.5 % (11.6-17.2); WHITE BLOOD COUNT 10.7 TH/MM3 (4.0-11.0)
[2017-09-10 11:43] LABS: ALBUMIN 2.5 GM/DL (3.4-5.0); ALT (GPT) 14 U/L (10-53); AST (GOT) 15 U/L (15-37); BICARBONATE 27.4 MEQ/L (21.0-32.0); BLOOD UREA NITROGEN 10 MG/DL (7-18); CALCIUM 8.4 MG/DL (8.5-10.1); CHLORIDE 106 MEQ/L (98-107); CREATININE 0.67 MG/DL (0.50-1.00); GLOMERULAR FILTRATION RATE 124 ML/MIN (>89); GLUCOSE,RANDOM 106 MG/DL (74-106); SODIUM (NA) 139 MEQ/L (136-145)
[2017-09-10 11:45] LABS: ALKALINE PHOSPHATASE 134 U/L (45-117); TOTAL BILIRUBIN ADULT 0.2 MG/DL (0.2-1.0); TOTAL PROTEIN 6.5 GM/DL (6.4-8.2)
[2017-09-10] MEDS: oxyCODONE/ACETAMINOPHEN 5 MG/325 MG TAB PO PRN (16:14)
[2017-09-10] MEDS: IBUPROFEN 800 MG TAB PO PRN (16:14)
[2017-09-10] MEDS: LABETALOL HCL 200 MG TAB PO SCH (20:55)
[2017-09-10] MEDS: DOCUSATE SODIUM 50 MG/SENNA 8.6 MG TAB PO PRN (20:55)
[2017-09-11] VITALS (7 sets, daily range): BP systolic 135–169; BP diastolic 11–111; PULSE 98–119; RESP 18; TEMP 98.1–98.2; O2SAT 98
[2017-09-11] MEDS: IBUPROFEN 800 MG TAB PO PRN ×2 (04:37→17:01)
[2017-09-11] MEDS: oxyCODONE/ACETAMINOPHEN 5 MG/325 MG TAB PO PRN (04:37)
--- NOTE | 2017-09-11 08:37 | HHI.OB ---
Subjective Post Day: 3 Remarks day #3. Afebrile overnight. Blood pressures remain labile with SBP 130s-160s and DPP approximately 90s-100s. Patient is asymptomatic, noting her last headache was yesterday. She denies chest pain, shortness of breath, blurry vision, urinary symptoms. Pain minimal. Decreased lochia. No breast tenderness. She is feeding the baby via breast/formula. Appetite good. No nausea or vomiting. Endorses flatus. No bowel movement. Ambulating well. Denies calf pain, shortness of breath, or cough. Otherwise, she is doing well this morning and has no other complaintsl Objective Vitals/I&O Vital Signs Date Time Temp Pulse Resp B/P (MAP) Pulse Ox O2 Delivery O2 Flow Rate FiO2 09/11/17 04:37 101 156/98 (117) 09/11/17 01:00 98 135/99 (111) 09/10/17 23:00 96 146/92 (110) 09/10/17 22:00 94 151/98 (115) 09/10/17 20:50 98.7 18 98 09/10/17 20:50 123 164/106 (125) 09/10/17 18:42 153/97 (115) 09/10/17 18:42 117 09/10/17 15:31 121 156/102 (120) 09/10/17 12:48 98.8 18 09/10/17 12:46 119 139/91 (107) 09/10/17 11:00 120 146/95 (112) 09/10/17 10:43 106 149/92 (111) 09/10/17 10:42 113 158/92 (114) 09/10/17 09:00 103 148/98 (115) Objective Remarks GENERAL: Well-nourished, well-developed patient. CARDIOVASCULAR: Regular rate and rhythm without murmurs, gallops, or rubs. RESPIRATORY: Breath sounds equal bilaterally without crackles. No accessory muscle use. ABDOMEN/GI: Abdomen soft, non-tender. Fundus: Firm, non-tender at umbilicus. GENITOURINARY: Light to moderate bleeding. EXTREMITIES: No cyanosis or edema, non-tender, without signs of DVT. Medications and IVs Current Medications Medications (Trade) Dose Ordered Sig/Haja Route Start Time Stop Time Status Last Admin Sodium Chloride 500 ml @ 1,000 mls/hr ONCE PRN IV 09/07/17 16:00 Sodium Chloride 1,000 ml @ 100 mls/hr Q10H PRN IV 09/07/17 16:19 (Bicitra Liq) 30 ml [employer]ICIAN PO 09/07/17 16:00 09/11/17 15:59 (Muri-Lube Oil) 10 ml UNSCH PRN TOPICAL 09/07/17 16:00 Lactated Ringer's 1,000 ml @ 75 mls/hr [id number] IV 09/07/17 15:59 09/09/17 08:59 Magnesium Sulfate 1,000 ml @ 50 mls/hr Q20H IV 09/07/17 15:59 09/09/17 08:58 (Trandate Inj) 40 mg NOW PRN IV PUSH 09/07/17 16:15 (Calcium Gluconate Inj) 1 gm UNSCH PRN IV PUSH 09/07/17 16:00 (NS Flush) 2 ml BID IV FLUSH 09/08/17 21:00 09/09/17 22:17 (NS Flush) 2 ml UNSCH PRN IV FLUSH 09/08/17 13:45 (Tylenol) 650 mg Q4H PRN PO 09/08/17 13:45 (Motrin) 800 mg Q8H PRN PO 09/08/17 13:45 09/11/17 04:37 (Percocet 5-325 Mg) 1 tab Q4H PRN PO 09/08/17 13:45 09/11/17 04:37 (Percocet 5-325 Mg) 2 tab Q4H PRN PO 09/08/17 13:45 09/10/17 21:00 (Americaine 20% Top Spr) 1 spray Q4H PRN TOPICAL 09/08/17 13:45 09/09/17 20:11 (Tucks Pads) 1 applic QID PRN TOPICAL 09/08/17 13:45 09/09/17 20:10 (Lauren-Colace) 2 tab Q12H PRN PO 09/08/17 13:45 09/10/17 20:55 (Ambien) 5 mg HS PRN PO 09/08/17 21:00 (Mag-Al Plus Susp Liq) 15 ml Q8H PRN PO 09/08/17 13:45 (Zofran Odt) 4 mg Q6H PRN PO 09/08/17 13:45 (Trandate) 200 mg Q12HR PO 09/10/17 21:00 09/10/17 20:55 (Procardia Xl) 60 mg DAILY PO 09/11/17 09:00 Assessment/Plan Assessment and Plan 32 y/o who is PPD#3 s/p . Course complicated by preeclampsia, and course complicated by persistently elevated blood pressures. -Continue routine care. -Percocet and Motrin PRN pain. -Encouraged OOB. Advised pelvic rest for 6 wks. -Will need a f/u appt. one week after discharge. -Re: ctrl, she would like OCPs. -D/c once BP stable, likely tomorrow HTN -Procardia 30mg p.o. daily increased to 60 mg daily today -Labetalol 200 mg p.o. every 12 hours Seen and discussed with Dr. Jean Paul Law,Laverne Fuentes MD Sep 11, 2017 08:37
[2017-09-11] MEDS: LABETALOL HCL 200 MG TAB PO SCH ×2 (08:41→21:23)
[2017-09-11] MEDS: NIFEdipine 60 MG SUSTAINED RELEASE TAB PO SCH (08:42)
[2017-09-12 03:48] VITALS: BP 159/78; PULSE 119; RESP 18
[2017-09-12 06:00] VITALS: BP 149/98; PULSE 112; RESP 20
--- NOTE | 2017-09-12 08:24 | HHI.OB ---
Subjective Post Day: 4 Remarks day #4. Afebrile overnight. Blood pressures overall improved with SBP 130s-150s and DBP 70s-100s. Patient is asymptomatic and ready to go home. She denies chest pain, shortness of breath, blurry vision, urinary symptoms. Pain minimal. Decreased lochia. No breast tenderness. She is feeding the baby via breast/formula. Appetite good. No nausea or vomiting. Endorses flatus. No bowel movement. Ambulating well. Denies calf pain, shortness of breath, or cough. Objective Vitals/I&O Vital Signs Date Time Temp Pulse Resp B/P (MAP) Pulse Ox O2 Delivery O2 Flow Rate FiO2 09/12/17 06:00 112 20 149/98 (115) 09/12/17 03:48 119 18 159/78 (105) 09/11/17 20:00 119 139/98 (112) 09/11/17 20:00 98.1 18 09/11/17 12:00 105 142/87 (105) 09/11/17 09:50 102 142/100 (114) Objective Remarks GENERAL: Well-nourished, well-developed patient. CARDIOVASCULAR: Regular rate and rhythm without murmurs, gallops, or rubs. RESPIRATORY: Breath sounds equal bilaterally without crackles. No accessory muscle use. ABDOMEN/GI: Abdomen soft, non-tender. Fundus: Firm, non-tender below umbilicus. GENITOURINARY: Light to moderate bleeding. EXTREMITIES: No cyanosis or edema, non-tender, without signs of DVT. Medications and IVs Current Medications Medications (Trade) Dose Ordered Sig/Haja Route Start Time Stop Time Status Last Admin Sodium Chloride 500 ml @ 1,000 mls/hr ONCE PRN IV 09/07/17 16:00 Sodium Chloride 1,000 ml @ 100 mls/hr Q10H PRN IV 09/07/17 16:19 (Muri-Lube Oil) 10 ml UNSCH PRN TOPICAL 09/07/17 16:00 Lactated Ringer's 1,000 ml @ 75 mls/hr [id number] IV 09/07/17 15:59 09/09/17 08:59 Magnesium Sulfate 1,000 ml @ 50 mls/hr Q20H IV 09/07/17 15:59 09/09/17 08:58 (Trandate Inj) 40 mg NOW PRN IV PUSH 09/07/17 16:15 (Calcium Gluconate Inj) 1 gm UNSCH PRN IV PUSH 09/07/17 16:00 (NS Flush) 2 ml BID IV FLUSH 09/08/17 21:00 09/09/17 22:17 (NS Flush) 2 ml UNSCH PRN IV FLUSH 09/08/17 13:45 (Tylenol) 650 mg Q4H PRN PO 09/08/17 13:45 (Motrin) 800 mg Q8H PRN PO 09/08/17 13:45 09/11/17 17:01 (Percocet 5-325 Mg) 1 tab Q4H PRN PO 09/08/17 13:45 09/11/17 04:37 (Percocet 5-325 Mg) 2 tab Q4H PRN PO 09/08/17 13:45 09/10/17 21:00 (Americaine 20% Top Spr) 1 spray Q4H PRN TOPICAL 09/08/17 13:45 09/09/17 20:11 (Tucks Pads) 1 applic QID PRN TOPICAL 09/08/17 13:45 09/09/17 20:10 (Lauren-Colace) 2 tab Q12H PRN PO 09/08/17 13:45 09/10/17 20:55 (Ambien) 5 mg HS PRN PO 09/08/17 21:00 (Mag-Al Plus Susp Liq) 15 ml Q8H PRN PO 09/08/17 13:45 (Zofran Odt) 4 mg Q6H PRN PO 09/08/17 13:45 (Trandate) 200 mg Q12HR PO 09/10/17 21:00 09/11/17 21:23 (Procardia Xl) 60 mg DAILY PO 09/11/17 09:00 09/11/17 08:42 Assessment/Plan Assessment and Plan 32 y/o who is PPD#4 s/p . Course complicated by preeclampsia, and course complicated by persistently elevated blood pressures which have improved with increased antiHTN dosing. -Continue routine care. -Percocet and Motrin PRN pain. -Encouraged OOB. Advised pelvic rest for 6 wks. -Will need a f/u appt. one week after discharge. -Re: ctrl, she would like OCPs. -D/c today. Pt counseled to f/u with PCP in one week. HTN -Procardia 30mg p.o. daily increased to 60 mg daily on 09/12/17. She will be discharged with 60mg daily dose. -Labetalol 200 mg p.o. q 12 hours inpt, she will be discharged with this dose. Seen and discussed with Dr. Meghann Law,Laverne Fuentes MD Sep 12, 2017 08:23
[2017-09-12] MEDS ORDERED: NIFE60TA8 PO (08:26)
[2017-09-12] MEDS ORDERED: LABE200T2 PO (08:26)
[2017-09-12] MEDS ORDERED: IBUP1TAB7 PO (08:26)
--- NOTE | 2017-09-12 08:26 | HHI.DCPOC ---
Discharge Care Plan Diagnosis: (1) 37 weeks gestation of (2) Gestational hypertension Report Symptoms to Your Doctor -Temperature above 100.5 degrees -Redness, of incision or excessive or foul smelling drainage -Unusual pain or calf pain -Increased vaginal bleeding -Painful or difficulty urinating -Feelings of extreme sadness or anxiety after 2 weeks Goals to Promote Your Health * To prevent worsening of your condition and complications * To maintain your health at the optimal level Directions to Meet Your Goals Take your medications as prescribed Follow your dietary instruction Follow activity as directed Ensure plenty of rest for recovery Drink fluids for hydration Keep your appointments as scheduled Take your immunizations and boosters as scheduled If your symptoms worsen call your PCP, if no PCP go to Urgent Care Center or Emergency Room Smoking is Dangerous to Your Health. Avoid second hand smoke Call the 24-hour crisis hotline for domestic abuse at Laverne Law MD Sep 12, 2017 08:26
[2017-09-12 09:30] VITALS: BP 148/97; PULSE 119; RESP 17; TEMP 98.4
[2017-09-12] MEDS: LABETALOL HCL 200 MG TAB PO SCH (09:36)
[2017-09-12] MEDS: NIFEdipine 60 MG SUSTAINED RELEASE TAB PO SCH (09:36)
[2017-09-12] MEDS ORDERED: INFLUENZA VIRUS VACCINE (QUADRIVALENT) 0.5 ML SYR IM ONE (11:45)
== END 2017-09-12 12:14 | disposition home or self-care (01) | DRG 775 ==
LOC: HOBED 14:43 → H2EA 16:19 → H1EA 09-08 15:52 → H2EA 09-08 15:52 → H1EA 09-09 19:22 → H2EA 09-10 00:10 → H1EA 09-10 14:51
PROVIDERS: ADMIT Obstetrics & Gynecology Obstetrics; ATTEND Obstetrics & Gynecology Obstetrics
PROC: 3E0P7VZ Introduction of Hormone into Female Reproductive, Via Natural or Artificial Opening (ICD-10-PCS; 2017-09-07)
PROC: 3E033VJ Introduction of Other Hormone into Peripheral Vein, Percutaneous Approach (ICD-10-PCS; 2017-09-07)
PROC: 10E0XZZ Delivery of Products of Conception, External Approach (ICD-10-PCS; principal; 2017-09-08)
PROC: 0KQM0ZZ Repair Perineum Muscle, Open Approach (ICD-10-PCS; 2017-09-08)
PROC: 10907ZC Drainage of Amniotic Fluid, Therapeutic from Products of Conception, Via Natural or Artificial Opening (ICD-10-PCS; 2017-09-08)
DX: O14.14 Severe pre-eclampsia complicating childbirth (principal); O71.4 Obstetric high vaginal laceration alone; O69.1XX0 Labor and delivery complicated by cord around neck, with compression, not applicable or unspecified; O76 Abnormality in fetal heart rate and rhythm complicating labor and delivery; Z37.0 Single live birth; Z3A.37 37 weeks gestation of pregnancy; Z23 Encounter for immunization
CPT/HCPCS: 59025; 80053; 80307; 81001; 82570; 84156; 84550; 85025; 85027; 86592; 86900; 86901; 87086; 90686; J0360; J2590; J3010; J3475; J7120; Q0163; Q2038